=== PATIENT | female | born 1985 | race Caucasian/White ===

== ENCOUNTER 2017-05-06 17:24 | Emergency (ER) | payer OTHER ==
[2017-05-06] MEDS ORDERED: MOTRIN 600 MG PO ONE (17:31)
[2017-05-06 17:32] VITALS: O2SAT 97
[2017-05-06] MEDS ORDERED: MOTRIN 600 MG ONE (17:34)
--- NOTE | 2017-05-06 17:36 | ERPHSYRPT ---
- History of Present Illness Time Seen by Provider: 05/06/17 17:25 Source: patient Exam Limitations: no limitations Patient Subjective Stated Complaint: pt accidently smacked right hand on a wall yesterday, now co pain to right wrist Triage Nursing Assessment: pt has not swelling or brusing to wrist, pt alert, walked in Physician History: patient accidentally struck the ulnar side of her right wrist on the corner of a wall last night; local pain; exacerbated by movement or palpation ; right handed; no prior history; no other injuries or complaints;no paresthesias or or distal weakness Occurred: yesterday Method of Injury: direct blow Quality: constant, aching Severity of Pain-Max: moderate Severity of Pain-Current: mild Extremities Pain Location: wrist: right (ulnar side) Modifying Factors: Improves With: immobilization (helps), movement (aggravates) Associated Symptoms: none Allergies/Adverse Reactions: latex Allergy (Verified 05/06/17 17:33) Home Medications: Medroxyprogesterone Acetate [Depo-Provera] 150 mg 05/06/17 [History] Oxycodone HCl/Acetaminophen [Oxycodone-Acetaminophen 5-325] 1 ea BID 05/06/17 [ History] Hx Tetanus, Diphtheria Vaccination/Date Given: (unknown) Hx Influenza Vaccination/Date Given: No Hx Pneumococcal Vaccination/Date Given: No Immunizations Up to Date: Yes - Review of Systems Constitutional: No Symptoms Eyes: No Symptoms Ears, Nose, & Throat: No Symptoms Respiratory: No Cough, No Dyspnea, No Wheezing Cardiac: No Chest Pain, No Palpitations, No Syncope Abdominal/Gastrointestinal: No Abdominal Pain, No Nausea, No Vomiting, No Diarrhea Genitourinary Symptoms: No Symptoms Musculoskeletal: Back Pain (chronic), Injury (right wrist), Joint Pain (lateral right wrist), No Neck Pain, No Fall, No Joint Redness, No Joint Swelling Skin: No Symptoms Neurological: No Symptoms Psychological: No Symptoms - Past Medical History Pertinent Past Medical History: Yes Neurological History: Migraines Cardiac History: Hypertension Endocrine Medical History: Thyroid Cancer, Other Musculoskeletal History: Other (Chronic back pain) GI Medical History: Gallbladder Disease - Past Surgical History Past Surgical History: Yes Gastrointestinal: Cholecystectomy Other Surgical History: THYROIDECTOCMY, THYROID CANCER, OVARIAN CYST, - Social History Smoking Status: Current every day smoker Exposure to second hand smoke: Yes Alcohol Use: Socially Drug Use: none Patient Lives Alone: No Significant Family History: no pertinent family hx - Female History Hx Last Menstrual Period: unknown Hx Now: No - Nursing Vital Signs Nursing Vital Signs: Initial Vital Signs Temperature 98.6 F 05/06/17 17:27 Pulse Rate 72 05/06/17 17:27 Respiratory Rate 16 05/06/17 17:27 Blood Pressure 152/91 05/06/17 17:27 O2 Sat by Pulse Oximetry 97 05/06/17 17:27 Pain Scale Pain Intensity 5 - Physical Exam General Appearance: mild distress, alert Eyes, Ears, Nose, Throat Exam: normal ENT inspection, pharynx normal, moist mucous membranes Neck Exam: normal inspection, non-tender, supple, full range of motion Cardiovascular/Respiratory Exam: chest non-tender, normal breath sounds, regular rate/rhythm, no M/R/G, no respiratory distress Abdominal Exam: non-tender, soft, no organomegaly Shoulder Exam: normal inspection, non-tender, no evidence of injury, normal ROM Elbow/Forearm Exam: normal inspection, non-tender, no evidence of injury, normal ROM Wrist Exam: normal inspection, normal ROM (with pain), bone tenderness (distal lateral ulnar), pain, soft tissue tenderness (lateral right wrist), No deformity , No ecchymosis, No mass, No swelling Hand Exam: normal inspection, non-tender, no evidence of injury, normal ROM Neuro/Tendon Exam: normal sensation, normal motor functions, normal tendon functions, responds to pain, no evidence tendon injury Mental Status Exam: alert, oriented x 3, cooperative Skin Exam: normal color, warm, dry, No rash SpO2 Interpretation: normal SpO2: 97 Oxygen Delivery: Room Air - Course Nursing assessment & vital signs reviewed: Yes - Radiology Exams Right Wrist X-ray Interpretation: Interpreted by me, Negative, No Fracture Ordered Tests: Active Orders 24 hr Category Date Time Status Cold Application STAT Care 05/06/17 17:31 Active Re-Check Vital Signs STAT Care 05/06/17 17:31 Active WRIST (MIN 3 VIEWS) Stat Exams 05/06/17 17:31 Taken Medication Summary Discontinued Medications Generic Name Dose Route Start Last Admin Trade Name Freq PRN Reason Stop Dose Admin Ibuprofen 600 mg 05/06/17 17:31 05/06/17 17:35 Motrin 600 Mg PO 05/06/17 17:32 600 mg STAT ONE Administration Ibuprofen Confirm 05/06/17 17:34 Motrin 600 Mg Administered 05/06/17 17:35 Dose 600 mg .ROUTE .STK-MED ONE - Progress Progress: re-examined (after x-ray) Progress Note: 05/06/17 ice applied; xr pending; will recheck after xr 05/06/17 17:45 xr neg; results shared with patient ; instructions given Counseled pt/family regarding: diagnosis, need for follow-up, rad results, smoking cessation - Departure Time of Disposition: 17:46 Departure Disposition: Home Clinical Impression: Contusion of right wrist, initial encounter Condition: Stable Critical Care Time: No Referrals: TANVIR MCCORMACK MD [Primary Care Provider] - Instructions: Wrist Pain Additional Instructions: RICE; aura OTC Follow-up with family doctor as directed. Call for appointment. Return if any problems. If you smoke please stop. Call or follow up with your family doctor for assistance if you need it to stop. Please wear your seatbelt when driving. Have a nice day. Thank you for allowing us to participate in your care today. :o) Dr Madi Glass
[2017-05-06 17:57] VITALS: BP 125/84; PULSE 84
--- NOTE | 2017-05-07 08:35 | XRAY ---
Indication: Pain following injury. Comparison: None 3 views of the right wrist demonstrates normal bones, articulation, and soft tissues.
== END 2017-05-06 17:58 | disposition home or self-care (01) ==
LOC: ED 17:24
DX: S60.211A Contusion of right wrist, initial encounter (principal); W22.01XA Walked into wall, initial encounter; Z79.891 Long term (current) use of opiate analgesic; M54.9 Dorsalgia, unspecified; G89.29 Other chronic pain
CPT/HCPCS: 73110; 99283; A9270-GY

== ENCOUNTER 2022-04-29 21:52 | Emergency (ER) | payer OTHER ==
--- NOTE | 2022-04-29 22:11 | ERPHSYRPT ---
- History of Present Illness Time Seen by Provider: 04/29/22 22:09 Source: patient Exam Limitations: no limitations Patient Subjective Stated Complaint: Rt wrist pain after a little wrestling with my son last night Triage Nursing Assessment: Pt ambulated into ER without diff. Pt c/o rt wrist pain. Pt is unable to lift anything up or use it appropriately. Pt was wrestling with her son last night and has hurt it. Pt has a hx of 2 rt wrist surgeries and is worried it was re-injured. Physician History: Right wrist pain after a little wrestling with my son last night c/o right wrist pain. Pt is unable to lift anything up or use it appropriately. Pt was wrestling with her son last night and has hurt it. Pt has a hx of 2 rt wrist surgeries and is worried it was re-injured. Occurred: yesterday Method of Injury: direct blow Quality: constant Severity of Pain-Max: mild Severity of Pain-Current: mild Extremities Pain Location: forearm: right, wrist: right Modifying Factors: Improves With: nothing Associated Symptoms: none Allergies/Adverse Reactions: latex Allergy (Verified 04/29/22 22:09) Home Medications: Medroxyprogesterone Acetate [Depo-Provera] 150 mg IM .[id number] 05/06/17 [History] Hx Tetanus, Diphtheria Vaccination/Date Given: Yes Hx Influenza Vaccination/Date Given: No Hx Pneumococcal Vaccination/Date Given: No Immunizations Up to Date: Yes Travel Risk - International Travel Have you traveled outside of the country in past 3 weeks: No - Coronavirus Screening Are you exhibiting any of the following symptoms?: No Close contact with a COVID-19 positive Pt in past 14-21 Days: No - Vaccine Status Have you recieved a Covid-19 vaccination: No - Review of Systems Constitutional: No Fever, No Chills Eyes: No Symptoms Ears, Nose, & Throat: No Symptoms Respiratory: No Cough, No Dyspnea Cardiac: No Chest Pain, No Edema, No Syncope Abdominal/Gastrointestinal: No Abdominal Pain, No Nausea, No Vomiting, No Diarrhea Genitourinary Symptoms: No Dysuria Musculoskeletal: Joint Pain, Joint Swelling, No Back Pain, No Neck Pain Skin: No Rash Neurological: No Dizziness, No Focal Weakness, No Sensory Changes Psychological: No Symptoms Endocrine: No Symptoms All Other Systems: Reviewed and Negative - Past Medical History Pertinent Past Medical History: Yes Neurological History: Migraines Cardiac History: Hypertension Respiratory History: No Pertinent History Endocrine Medical History: Thyroid Cancer Musculoskeletal History: No Pertinent History GI Medical History: Gallbladder Disease - Past Surgical History Past Surgical History: Yes Gastrointestinal: Cholecystectomy Musculoskeletal: Other Other Surgical History: THYROIDECTOCMY, THYROID CANCER, OVARIAN CYST, RIGHT WRIST SURGERIES X2 - Social History Smoking Status: Current every day smoker How long have you smoked: 21 yrs Exposure to second hand smoke: Yes Alcohol Use: Socially Drug Use: none Patient Lives Alone: No Significant Family History: no pertinent family hx - Female History Hx Last Menstrual Period: last week Hx Now: No - Nursing Vital Signs Nursing Vital Signs: Initial Vital Signs Temperature 97.6 F 04/29/22 22:00 Pulse Rate 99 H 04/29/22 22:00 Respiratory Rate 18 04/29/22 22:00 Blood Pressure 166/116 04/29/22 22:00 O2 Sat by Pulse Oximetry 98 04/29/22 22:00 Pain Scale Pain Intensity 8 - Physical Exam General Appearance: alert Eyes, Ears, Nose, Throat Exam: moist mucous membranes Neck Exam: non-tender, supple Cardiovascular/Respiratory Exam: chest non-tender, normal breath sounds, regular rate/rhythm, no respiratory distress Abdominal Exam: non-tender, No guarding Back Exam: normal inspection, No vertebral tenderness Elbow/Forearm Exam: soft tissue tenderness, No deformity Wrist Exam: soft tissue tenderness, No deformity Neuro/Tendon Exam: normal sensation, normal motor functions Mental Status Exam: alert, oriented x 3, cooperative Skin Exam: normal color, warm, dry SpO2: 98 - Course Nursing assessment & vital signs reviewed: Yes - Radiology Exams Forearm X-ray Interpretation: Reviewed by me Wrist X-ray Interpretation: Reviewed by me Ordered Tests: Active Orders 24 hr Category Date Time Status FOREARM Stat Exams 04/29/22 22:08 Ordered WRIST (MIN 3 VIEWS) Stat Exams 04/29/22 22:08 Ordered - Progress Progress: unchanged Counseled pt/family regarding: diagnosis, need for follow-up, rad results - Departure Departure Disposition: Home Clinical Impression: Contusion of right wrist, initial encounter Right forearm injury Qualifiers: Encounter type: initial encounter Qualified Code(s): S59.911A - Unspecified injury of right forearm, initial encounter Condition: Stable Critical Care Time: No Referrals: TANVIR MCCORMACK MD [Primary Care Provider] - [facility]-Orth[facility] M-F [id number] Instructions: Contusion (DC) Additional Instructions: Discharge/Care Plan RADHA BOWMAN was seen on 04/29/22 in the Emergency Room. The patient was counseled regarding Diagnosis,Lab results, Imaging studies, need for follow up and when to return to the Emergency Room. Prescriptions given: Discharge Note I have spoken with the patient and/or caregivers. I have explained the patient's condition, diagnosis and treatment plan based on the information available to me at this time. I have answered the patient's and/or caregiver's questions and addressed any concerns. The patient and/or caregivers have as good understanding of the patient's diagnosis, condition and treatment plan as can be expected at this point. The vital signs have been stable. The patient's condition is stable and appropriate for discharge from the emergency department. The patient will pursue further outpatient evaluation with the primary care physician or other designated or consulting physician as outlined in the discharge instructions. The patient and/or caregivers are agreeable to this plan of care and follow-up instructions have been explained in detail. The patient and/or caregivers have received these instruction. The patient/and or caregivers are aware that any significant change in condition or worsening of symptoms should prompt an immediate return to this or the closest emergency department or call 911. RADHA BOWMAN was seen on 04/29/22 n the Emergency Room. At that time you were treated for an emergent condition, during your visit Laboratory, Radiology and/or other procedures may have been ordered. It is very important that you follow-up with your Primary Care Physician TANVIR MCCORMACK within the next 24- 48 hours to review your Emergency Room visit and the final results of testing that was ordered. Some test results such as Urine Cultures, Blood Cultures, and other cultures if ordered will not be finalized for 24-48 hours. If you do not have a Primary Care Provider please call the medical records department at [phone] ext [phone] to obtain a copy of your results or you may sign into our patient portal to obtain these results by visiting us @ [email or web address] and completing the following steps: 1. Click on the Patient Portal link 2. Click the Patient Self Enrollment Link to complete the enrollment form and entering your 3. Once the enrollment form is completed you will receive an email with a temporary ID and password at the email address you provided. 4. Next choose a user name and password. Your user name must be at least 4 characters long and your password must be at least 4 characters long. 5. Choose a security question from the list and provide your answer to the question. If you already have signed into the Health Portal you may access your Health Care Information 08/02 by the following steps: 1. Login to our website @ [email or web address] 2. Enter your original user name and password. FAQS The [facility] Health Portal is an online tool that contains your Lab Results, Radiology Reports, Visit History, Discharge Instructions and Health Summary Lab and Radiology Results will not be available for 72 hours on the portal. The Portal is a secure site, passwords are encryted and URLs are re-written so they cannot be copied and pasted. You and authorized family members are the only ones who can access your Portal. Also there is a timeout feature that protects your information if you leave the Portal page open. If you have technical difficulty please use the Contact Us link on the page this will allow you to submit any questions you have regarding the Portal or you may contact the Medical Record Department at [phone].
[2022-04-29 22:40] VITALS: BP 150/102; PULSE 82; O2SAT 99
--- NOTE | 2022-04-30 08:46 | XRAY ---
Indication: Pain. No recent injury. Comparison: December 06, 2017 3 view right wrist demonstrates new finding old distal ulna shaft fracture with intact fixation hardware. No other bony, articular, or soft tissue abnormalities.
--- NOTE | 2022-04-30 08:46 | XRAY ---
Indication: Pain. No recent injury. Comparison: None 2 view right forearm demonstrates old distal ulna shaft fracture with intact fixation hardware. No other bony, articular, or soft tissue abnormalities.
== END 2022-04-29 22:41 | disposition home or self-care (01) ==
LOC: ED 21:52
DX: S60.211A Contusion of right wrist, initial encounter (principal); S59.911A Unspecified injury of right forearm, initial encounter; X50.9XXA Other and unspecified overexertion or strenuous movements or postures, initial encounter; Y93.83 Activity, rough housing and horseplay; M25.531 Pain in right wrist; I10 Essential (primary) hypertension; Z72.0 Tobacco use; Z28.310 Unvaccinated for COVID-19
CPT/HCPCS: 73090; 73110; 99282

== ENCOUNTER 2022-07-22 09:34 | Day surgery (SDC) | payer OTHER ==
[2022-07-22] MEDS ORDERED: LIDOCAINE HCL 1% 50 MG/5 ML VL PF IJ ONE (09:35)
[2022-07-22] MEDS ORDERED: Depo-Medrol 40 MG/ML IM ONE (09:35)
[2022-07-22] MEDS ORDERED: BUPIVACAINE 0.5% VIAL IJ ONE (09:35)
--- NOTE | 2022-07-22 12:15 | XRAY ---
Indication: Left knee injection. Intraoperative fluoroscopy provided for 10 seconds. Single digital spot image submitted for interpretation demonstrates needle tip projecting over the left femur intercondylar notch. Small amount of contrast injected for needle tip placement. Correlate with intraoperative findings/report.
--- NOTE | 2022-07-22 12:16 | XRAY ---
Indication: Right knee injection. Intraoperative fluoroscopy provided for 9 seconds. Single digital spot image submitted for interpretation demonstrates needle tip projecting over the right femur intercondylar notch. Small amount of contrast injected for needle tip placement. Correlate with intraoperative findings/report.
--- NOTE | 2022-07-22 12:22 | XRAY ---
9 seconds fluoroscopy time in surgery for intra-articular injection of the right knee.
--- NOTE | 2022-07-22 12:22 | XRAY ---
10 seconds fluoroscopy time in surgery for intra-articular injection of the left knee.
== END 2022-07-22 12:05 | disposition home or self-care (01) ==
LOC: SDC-PAIN 09:34
PROVIDERS: ATTEND Psychiatry & Neurology Pain Medicine
DX: M17.0 Bilateral primary osteoarthritis of knee (principal); Z79.899 Other long term (current) drug therapy
CPT/HCPCS: 20610; 73560; 77002; 81025; J1030; J2001; Q9966